=== PATIENT | male | born 1975 | race Caucasian/White ===

== ENCOUNTER 2016-10-14 16:07 | Outpatient (CLI) ==
--- NOTE | 2016-10-14 17:06 | DI ---
EXAM: Chest two view, frontal and lateral views. HISTORY: Cough. COMPARISON: None available. FINDINGS: Heart size is normal. There is no vascular congestion. Left lower lobe consolidation no fred. The lungs are otherwise clear without pleural effusion or pneumothorax. Osseous structures ar e intact. IMPRESSION: Left lower lobe pneumonia. Follow-up is recommended to confirm resolution.
== END 2016-10-14 16:08 | disposition home or self-care (01) ==
LOC: RAD 16:07
PROVIDERS: ATTEND Family Medicine
DX: J40 Bronchitis, not specified as acute or chronic (principal)